=== PATIENT | male | born 1995 | race Caucasian/White ===

== ENCOUNTER 2017-02-11 21:38 | Emergency (ER) | payer MEDICAID, OTHER ==
[~2017-02-11] VITALS: Ht 185.4 cm; Wt 70.4 kg
[~2017-02-11 21:38] MED LIST: HYDR-707 PO; HYDR1TABED PO
--- OUTSIDE RECORDS SUMMARY | 2017-02-11 21:45 | XMS REPORT | Summary of Care ---
Author Author Aaliyah Black M.D. Organization Unknown Address [address], [place] [id number] Phone Unavailable Care Team Providers Care Hospitality Ambassador Name Role Phone Wayne Bergman, R Unavailable Unavailable Aaliyah Black PP Unavailable Unavailable Unavailable Functional Status Functional Status Health Issues Name Dates Details Functional status health issues are not documented Status: Cognitive Status Health Issues Name Dates Details Cognitive status health issues are not documented Status: Problems Name Dates Details Bright Red Blood Per Rectum Status: Active Pain In The Tailbone Status: Active Closed fracture of clavicle (810.00, S42.009A) Status: Active Headache (784.0, R51) Status: Active Diarrhea (787.91, R19.7) Status: Active Well child visit (V20.2, Z00.129) Status: Active Bleeding hemorrhoids (455.8, K64.9) Status: Active Aftercare involving internal fixation device (V54.09, Z47.89) Status: Active Sore throat (462, J02.9) Status: Active Bloating (787.3, R14.0) Status: Active Concussion (850.9, S06.0X9A) Status: Active Irritable bowel syndrome (564.1, K58.9) Status: Active Hand pain (729.5, M79.643) Status: Active Periodic health assessment, general screening, adult (V70.0, Z00.00) Status: Active Folliculitis (704.8, L73.9) Status: Active Laceration of left side of back (876.0, S21.212A) Status: Active Contact dermatitis (692.9, L25.9) Status: Active Medications Name Dates Details Hydrocortisone Valerate 0.2 % External Cream APPLY SPARINGLY ONCE OR TWICE DAILY NEEDED. Quantity: 1 Refills: 0 Aaliyah Black M.D. Started [id number] GM Tube Allergies and Adverse Reactions Name Dates Details No Known Drug Allergies Status: Active Past Medical History Name Dates Details Aftercare involving internal fixation device (V54.09, Z47.89) Status: Active Procedures Procedure Dates Details History of Complete Colonoscopy Completed:03-Jun-2011 History of Open Treatment Of Clavicular Fracture Completed:06-Jul-2013 Procedures not documented Immunization Name Dates Details Hepatitis B Administered on: DTaP Administered on:1996 HIB Administered on:1996 Hepatitis B Administered on:1996 OPV Administered on:1996 DTaP Administered on:1996 HIB Administered on:1996 OPV Administered on:1996 DTaP Administered on:1996 HIB Administered on:1996 OPV Administered on:1996 Hepatitis B Administered on:1996 DTaP Administered on:22-Jan-1998 HIB Administered on:22-Jan-1998 MMR Administered on:22-Jan-1998 MMR Administered on:29-Apr-2001 IPV Administered on:29-Apr-2001 DTaP Administered on:16-Jun-2001 Tdap (Adacel) Lot #: [id number] Administered on:13-May-2009 Tdap (Adacel) Lot #: [id number] Administered on: Social History Name Dates Details Smoking StatusNever smoker Vital Signs Date Test Result Details 10:27 BP Systolic 103 mm[Hg] Status: BP Diastolic 63 mm[Hg] Status: Heart Rate 60 /min Status: Temperature 98.6 f Status: O2 SAT 100 % Status: Results Date Description Value Details Results not documented Plan of Care Planned Observations Name Dates Details Planned Goals not documented Goal Planned Encounters Appointment; Provider: Gilberto Ellis On 10:45 Appointment; Provider: Gilberto Ellis On 06-Jul-2013 10:30 Instructions Instructions not documented Encounters Appointment; Aaliyah Black Encounter Diagnosis: Problem not documented On 14:30 Appointment; Damián Bailon Encounter Diagnosis: Problem not documented On 10:15 Appointment; Aaliyah Black Encounter Diagnosis: Problem not documented On 13:45 Appointment; Damir Sandoval Encounter Diagnosis: Problem not documented On 26-Sep-2014 10:30 Appointment; Aaliyah Black Encounter Diagnosis: Problem not documented On 16-Aug-2014 10:30 Appointment; Gilberto Ellis Encounter Diagnosis: Problem not documented On 13-Jun-2014 09:45 Appointment; Gilberto Ellis Encounter Diagnosis: Problem not documented On 14-May-2014 10:15 Appointment; Gilberto Ellis Encounter Diagnosis: Problem not documented On 10:45 Appointment; Gilberto Ellis Encounter Diagnosis: Problem not documented On 10:45 Appointment; Aaliyah Black Encounter Diagnosis: Problem not documented On 13:45 Appointment; Gilberto Ellis Encounter Diagnosis: Problem not documented On 11:15 Appointment; Gilberto Ellis Encounter Diagnosis: Problem not documented On 12:45 Appointment; Aaliyah Black Encounter Diagnosis: Problem not documented On 10:45 Appointment; Aaliyah Black Encounter Diagnosis: Problem not documented On 01-Jan-2014 15:30 Appointment; Aaliyah Black Encounter Diagnosis: Problem not documented On 17-Nov-2013 11:45 Appointment; Gilberto Ellis Encounter Diagnosis: Problem not documented On 13-Nov-2013 13:00 Appointment; Gilberto Ellis Encounter Diagnosis: Problem not documented On 02-Oct-2013 14:15 Appointment; Boyd Lau Encounter Diagnosis: Problem not documented On 25-Sep-2013 14:30 Appointment; Mira Polk Encounter Diagnosis: Problem not documented On 25-Sep-2013 14:00 Appointment; Mira Polk Encounter Diagnosis: Problem not documented On 18-Sep-2013 13:30 Appointment; Mira Polk Encounter Diagnosis: Problem not documented On 15-Sep-2013 15:30 Appointment; Mira Polk Encounter Diagnosis: Problem not documented On 12-Sep-2013 15:30 Appointment; Mira Polk Encounter Diagnosis: Problem not documented On 08-Sep-2013 15:30 Appointment; Mira Polk Encounter Diagnosis: Problem not documented On 05-Sep-2013 15:30 Appointment; Mira Polk Encounter Diagnosis: Problem not documented On 01-Sep-2013 10:30 Appointment; Mira Polk Encounter Diagnosis: Problem not documented On 29-Aug-2013 10:30 Appointment; Gilberto Ellis Encounter Diagnosis: Problem not documented On 28-Aug-2013 11:15 Appointment; Mira Polk Encounter Diagnosis: Problem not documented On 23-Aug-2013 10:30 Appointment; Boyd Lau Encounter Diagnosis: Problem not documented On 21-Aug-2013 14:00 Appointment; Boyd Lau Encounter Diagnosis: Problem not documented On 16-Aug-2013 15:30 Appointment; Boyd Lau Encounter Diagnosis: Problem not documented On 14-Aug-2013 15:30 Appointment; Boyd Lau Encounter Diagnosis: Problem not documented On 09-Aug-2013 14:00 Appointment; Gilberto Ellis Encounter Diagnosis: Problem not documented On 07-Aug-2013 13:00 Appointment; Gilberto Ellis Encounter Diagnosis: Problem not documented On 24-Jul-2013 13:30 Appointment; Gilberto Ellis Encounter Diagnosis: Problem not documented On 19-Jul-2013 10:45 Appointment; Gilberto Ellis Encounter Diagnosis: Problem not documented On 12-Jul-2013 10:15 Appointment; Gilberto Ellis Encounter Diagnosis: Problem not documented On 05-Jul-2013 08:30 Appointment; Aaliyah Black Encounter Diagnosis: Problem not documented On 03-Jul-2013 14:30 Appointment; Aaliyah Black Encounter Diagnosis: Problem not documented On 18-May-2013 10:00
[2017-02-11 22:58] VITALS: BP 120/57
--- NOTE | 2017-02-12 07:30 | Diagnostic Imaging Report ---
INDICATION: Pain, fracture. TECHNIQUE: 3 views of the left foot. CORRELATION STUDY: None FINDINGS: There is a transverse nondisplaced fracture at the base of the fifth metatarsal. Alignment appearing to be anatomic. Remaining osseous structures intact and unremarkable. Mild soft tissue swelling at the base of the fifth metatarsal. IMPRESSION: Nondisplaced fracture involving the base of the fifth metatarsal. Dictated by: Dictated on workstation # [id number]
--- NOTE | 2017-02-12 07:31 | Diagnostic Imaging Report ---
INDICATION: Pain. TECHNIQUE: 3 views of the left ankle. CORRELATION STUDY: None. FINDINGS: The bony alignment is anatomic. The talar dome is intact. The ankle mortise is maintained. There is no acute fracture or dislocation. Soft tissues are unremarkable. There is note made of a nondisplaced fracture at the base of the fifth metatarsal. IMPRESSION: Negative for acute bony abnormality of the ankle. Nondisplaced fracture at the base of the fifth metatarsal. Dictated by: Dictated on workstation # [id number]
== END 2017-02-11 22:53 | disposition home or self-care (01) ==
LOC: ED 21:42
DX: S92.352A Displaced fracture of fifth metatarsal bone, left foot, initial encounter for closed fracture (principal); S93.492A Sprain of other ligament of left ankle, initial encounter; W10.8XXA Fall (on) (from) other stairs and steps, initial encounter; Y93.89 Activity, other specified; Y92.008 Other place in unspecified non-institutional (private) residence as the place of occurrence of the external cause
CPT/HCPCS: 29515; 73610; 99283